=== PATIENT | female | born 1955 | race Hispanic/Latino ===

== ENCOUNTER 2019-11-20 09:22 | Emergency (ER) | payer MEDICARE ==
[~2019-11-20 09:22] MED LIST: ACET160E68 PEG; ACET160E68 PO; CALC-1034 PO; CHOL50004 PEG; FURO20TA4 PO; LEVO500T2 PO; MOM30 PO; PROT1PAC2 PO; [UNRECOGNIZED DRUG - CODE] IV
[2019-11-20] MEDS ORDERED: DIATR MEGLU/DIATRIZOATE SODIUM 30 ML BOTTLE ONE (12:46)
== END 2019-11-20 14:01 | disposition home or self-care (01) ==
LOC: EDH 09:22
DX: K94.23 Gastrostomy malfunction (principal); Z88.3 Allergy status to other anti-infective agents; Z88.0 Allergy status to penicillin
CPT/HCPCS: 43762; 74018; 99284; Q9963

== ENCOUNTER 2019-12-09 22:59 | Emergency (ER) | payer MEDICARE ==
[2019-12-10] MEDS ORDERED: DIATR MEGLU/DIATRIZOATE SODIUM 30 ML BOTTLE ONE (00:52)
== END 2019-12-10 03:20 | disposition home or self-care (01) ==
LOC: EDH 22:59
DX: T85.528A Displacement of other gastrointestinal prosthetic devices, implants and grafts, initial encounter (principal); Z96.89 Presence of other specified functional implants; E03.9 Hypothyroidism, unspecified; Z88.0 Allergy status to penicillin; Z88.3 Allergy status to other anti-infective agents
CPT/HCPCS: 74018; 99283; Q9963

== ENCOUNTER 2020-03-22 09:05 | Emergency (ER) | payer MEDICARE ==
[~2020-03-22 09:05] MED LIST changes: +ACET160E39 PEG; +ACET160E39 PO; -ACET160E68 PEG; -ACET160E68 PO
[2020-03-22 09:57] LABS: APPEARANCE,URINE CLOUDY (CLEAR); BILIRUBIN,URINE NEGATIVE (NEGATIVE); COLOR,URINE YELLOW (YELLOW); GLUCOSE, URINE (UA) NEGATIVE (NEGATIVE); KETONES,URINE NEGATIVE (NEGATIVE); LEUKOCYTE ESTERASE ,URINE LARGE (NEGATIVE); NITRATE,URINE NEGATIVE (NEGATIVE); OCCULT BLOOD,URINE SMALL (NEGATIVE); PH,URINE 7.5 (5.0-8.0); PROTEIN,URINE NEGATIVE (NEGATIVE); UROBILINOGEN,URINE 0.2 mg/dL (0.2-1.0)
[2020-03-22 10:02] LABS: AMPHET/METH SCREEN,URINE NEGATIVE (NEGATIVE); BARBITURATE SCREEN, URINE NEGATIVE (NEGATIVE); BENZODIAZEPINES SCREEN,URINE NEGATIVE (NEGATIVE); CANNABINOID SCREEN,URINE NEGATIVE (NEGATIVE); COCAINE SCREEN,URINE NEGATIVE (NEGATIVE); OPIATE SCREEN,URINE NEGATIVE (NEGATIVE); PHENCYCLIDINE SCREEN,URINE NEGATIVE (NEGATIVE)
[2020-03-22 10:04] LABS: BACTERIA,URINE Many /HPF (None Seen); RBC,URINE 0-1 /HPF (0-1); SQUAMOUS EPITHELIAL CELL,UR Few /HPF (0-2); WBC,URINE 26-50 /HPF (0-1)
[2020-03-22 10:19] LABS: HEMATOCRIT 35.6 % (36-48); MEAN CORPUSCULAR HEMOGLOBIN 32.3 pg (27.0-33.0); MEAN CORPUSCULAR HGB CONC 33.7 g/dL (32.0-36.0); MEAN CORPUSCULAR VOLUME 95.7 fL (79-99); PLATELET COUNT (AUTO) 248 K/uL (130-400); RED BLOOD CELL COUNT(AUTO) 3.72 MIL/uL (4.00-5.50); RED CELL DISTRIBUTION WIDTH 13.1 % (11.0-15.5); WHITE BLOOD COUNT (AUTO) 7.1 K/uL (4.8-10.8)
[2020-03-22 10:23] LABS: BASOPHILS % (AUTO) 0.2 % (0.0-5.0); EOSINOPHILS % (AUTO) 3.7 % (0.0-8.0); MONOCYTES % (AUTO) 15.7 % (3.0-13.0); NEUTROPHILS % (AUTO) 52.7 % (40.0-77.0)
[2020-03-22 10:25] LABS: CARBON DIOXIDE 24 mmol/L (21-32); CHLORIDE 100 mmol/L (101-111); CREATININE 0.8 mg/dL (0.5-1.5); GLOMERULAR FILTR. RATE CALC 77 mL/min (>60); GLUCOSE,RANDOM 87 mg/dL (70-105); POTASSIUM 4.9 mmol/L (3.5-5.1); SODIUM SERUM 132 mmol/L (136-145); UREA NITROGEN, BLOOD 31 mg/dL (7-18)
[2020-03-22 10:30] LABS: ALANINE AMINOTRANSFERASE 18 U/L (12-78); ALBUMIN 2.8 g/dL (3.5-5.0); ALCOHOL, BLOOD < 3 mg/dL (0-10); ASPARTATE AMINOTRANSFERASE 24 U/L (10-37); BILIRUBIN,TOTAL 0.3 mg/dL (0.2-1.0); TOTAL PROTEIN, SERUM 6.6 g/dL (6.0-8.3)
[2020-03-22 10:31] LABS: SALICYLATE < 2.8 mg/dL (2.8-20.0)
[2020-03-22 11:25] LABS: ACETAMINOPHEN < 1 mcg/mL (10-30)
[2020-03-22] MEDS ORDERED: CEFTRIAXONE 1G VIAL ONE (11:45)
[2020-03-22] MEDS ORDERED: 0.9%NACL 50ML 50 ML IV ONE (11:46)
== END 2020-03-22 14:30 | disposition home or self-care (01) ==
LOC: EDH 09:05
DX: G80.9 Cerebral palsy, unspecified (principal); R41.82 Altered mental status, unspecified; N39.0 Urinary tract infection, site not specified; E46 Unspecified protein-calorie malnutrition; F79 Unspecified intellectual disabilities; R13.10 Dysphagia, unspecified; E78.00 Pure hypercholesterolemia, unspecified; K21.9 Gastro-esophageal reflux disease without esophagitis; E03.9 Hypothyroidism, unspecified; Z88.0 Allergy status to penicillin; Z88.1 Allergy status to other antibiotic agents
CPT/HCPCS: 36415; 70450; 80053; 80305; 81001; 85025; 87077; 87088; 87186; 99284; G0481; J0696

== ENCOUNTER 2020-12-27 05:12 | Emergency (ER) | payer MEDICARE ==
[2020-12-27 05:17] VITALS: BP 130/74
[2020-12-27] MEDS ORDERED: DIATR MEGLU/DIATRIZOATE SODIUM 30 ML BOTTLE ONE ×2 (06:34→06:52)
== END 2020-12-27 07:19 | disposition home or self-care (01) ==
LOC: EDH 05:12
DX: K94.23 Gastrostomy malfunction (principal); E03.9 Hypothyroidism, unspecified; I10 Essential (primary) hypertension; Z79.899 Other long term (current) drug therapy; Z88.0 Allergy status to penicillin; Z88.1 Allergy status to other antibiotic agents
CPT/HCPCS: 43762; 74018; 99284; Q9963 ×2

== ENCOUNTER 2023-11-23 18:43 | Inpatient (IN) | payer MEDICARE ==
[~2023-11-23] VITALS: Ht 147.3 cm; Wt 40.8 kg
[~2023-11-23 18:43] MED LIST changes: -ACET160E39 PEG; -ACET160E39 PO; +ACET160S PEG; +AMLO-257 PEG; +ATRO2DRO7 SL; +BISA10SU11 RC; -CALC-1034 PO; +CALC-1255 PEG; +CARB-283 OP; -CHOL50004 PEG; +CYAN100099 PEG; +EMOL45EM TP; +FENO48TA10 PO; +FENO54TA6 PEG; -FURO20TA4 PO; +LACT-461 PEG; +LEVO25CA4 PEG; +LEVO25CA4 PO; -LEVO500T2 PO; +LORA10TA7 PO; +LORA5SOL30 PEG; +MAGN400O17 PEG; +MENT113P8 TP; +METO5SOL26 PEG; +METO5TAB2 PO; +MIDA5SPR NS; -MOM30 PO; +MULT9LIQ6 PEG; +ONDA4SOL PO; +PROT1PAC2 PEG; -PROT1PAC2 PO; -[UNRECOGNIZED DRUG - CODE] IV; +[UNRECOGNIZED DRUG - CODE] OP; +[UNRECOGNIZED DRUG - CODE] PEG; +[UNRECOGNIZED DRUG - CODE] PO
[2023-11-23 20:09] LABS: BASOPHILS # (AUTO) 0.02 K/uL (0.00-0.20); BASOPHILS % (AUTO) 0.1 % (0.0-5.0); IMMATURE GRANULOCYTE ABSOLUTE 0.08 K/uL (0-1); LYMPHOCYTES # (AUTO) 0.8 K/uL (1.0-4.8); LYMPHOCYTES % (AUTO) 5.2 % (21.0-51.0); MEAN CORPUSCULAR HEMOGLOBIN 30.9 pg (27.0-33.0); MEAN CORPUSCULAR HGB CONC 34.6 g/dL (32.0-36.0); MEAN CORPUSCULAR VOLUME 89.2 fL (79-99); MONOCYTES # (AUTO) 0.8 K/uL (0.1-1.0); MONOCYTES % (AUTO) 5.2 % (3.0-13.0); NEUTROPHILS # (AUTO) 12.7 K/uL (1.8-7.7); NEUTROPHILS % (AUTO) 88.9 % (40.0-77.0); PLATELET COUNT (AUTO) 304 K/uL (130-400); RED BLOOD CELL COUNT(AUTO) 4.37 MIL/uL (4.00-5.50); RED CELL DISTRIBUTION WIDTH 14.4 % (11.0-15.5); WHITE BLOOD COUNT (AUTO) 14.3 K/uL (4.8-10.8)
[2023-11-23] MEDS: PANTOPrazole 40 MG/VIAL IVP ONE (20:15)
[2023-11-23] MEDS: ondanSETRON 4MG INJ IVP ONE (20:15)
[2023-11-23] MEDS: 0.9%NACL 1000ML 1,000 ML IV ONE (20:15)
[2023-11-23 20:17] LABS: CREATININE 0.6 mg/dL (0.5-1.0)
[2023-11-23 20:22] LABS: ALBUMIN 3.7 g/dL (3.5-5.0); BILIRUBIN,DIRECT 0.1 mg/dL (0.0-0.3); BILIRUBIN,TOTAL 0.5 mg/dL (0.2-1.0); TOTAL PROTEIN, SERUM 7.3 g/dL (6.0-8.3)
[2023-11-23 20:33] LABS: INR 1.02 (0.85-1.15)
[2023-11-23 20:35] LABS: PARTIAL THROMBOPLASTIN TIME 28.8 SEC (26.3-35.5)
[2023-11-23 21:12] LABS: COVID19 (SARS ANTIGEN RAPID) PRESUMPTIVE NEGATIVE (NEGATIVE); INFLUENZA TYPE A Negative For Type A (NEGATIVE); INFLUENZA TYPE B Negative For Type B (NEGATIVE)
[2023-11-23] MEDS: levoFLOXacin 750 MG/D5W 150 ML 150 ML IV ONE (21:16)
[2023-11-23 21:37] LABS: APPEARANCE,URINE CLEAR (CLEAR); BILIRUBIN,URINE NEGATIVE (NEGATIVE); COLOR,URINE YELLOW (YELLOW); GLUCOSE, URINE (UA) NEGATIVE (NEGATIVE); KETONES,URINE NEGATIVE (NEGATIVE); LEUKOCYTE ESTERASE ,URINE NEGATIVE Leu/uL (NEGATIVE); NITRATE,URINE NEGATIVE (NEGATIVE); OCCULT BLOOD,URINE NEGATIVE (NEGATIVE); PH,URINE 6.5 (5.0-8.0); PROTEIN,URINE NEGATIVE (NEGATIVE); UROBILINOGEN,URINE 0.2 mg/dL (0.2-1.0)
[2023-11-23 21:39] LABS: ADD UA MICROSCOPIC NO
[2023-11-23] MEDS ORDERED: ondanSETRON 4MG INJ IVP PRN (23:00)
[2023-11-23] MEDS ORDERED: acetaMINOPHEN 650 MG SUPPOSITORY RC PRN (23:00)
[2023-11-23] MEDS ORDERED: ALBUTEROL 0.083% 2.5 MG/3 ML INH IH PRN (23:00)
[2023-11-23] MEDS ORDERED: hydrALAZine 20MG/ML VIAL IV PRN (23:00)
[2023-11-23] MEDS ORDERED: acetaMINOPHEN 325 MG TAB PEG PRN (23:00)
[2023-11-23] MEDS ORDERED: LACTULOSE 20 GM/30 ML UDCUP PO PRN (23:00)
[2023-11-23] MEDS ORDERED: doCUSate SODIUM 100 MG CAP PO PRN (23:00)
[2023-11-23 23:45] VITALS: BP 106/58; PULSE 76; RESP 20; TEMP 98.1; O2SAT 93
[2023-11-24] VITALS (13 sets, daily range): BP systolic 100–127; BP diastolic 43–63; PULSE 68–89; RESP 18–22; TEMP 97.4–98.2; O2SAT 93–96
[2023-11-24] MEDS: LACTATED RINGERS 1000ML 1,000 ML IV SCH (00:05)
[2023-11-24] MEDS: IpraTROPium 0.5 MG/2.5 ML INH IH SCH (00:15)
[2023-11-24] MEDS ORDERED: PROP10DR15 OP (00:35)
[2023-11-24] MEDS ORDERED: GLUCAGON 1MG KIT 1 MG ML IM PRN (02:30)
[2023-11-24] MEDS: INSULIN humuLIN R 100 UNIT/ML 3ML SQ SCH (05:29)
[2023-11-24 05:45] LABS: BASOPHILS # (AUTO) 0.02 K/uL (0.00-0.20); BASOPHILS % (AUTO) 0.3 % (0.0-5.0); EOSINOPHILS # (AUTO) 0.01 K/uL (0.00-0.70); EOSINOPHILS % (AUTO) 0.1 % (0.0-8.0); HEMATOCRIT 35.6 % (36-48); IMMATURE GRANULOCYTE ABSOLUTE 0.03 K/uL (0-1); LYMPHOCYTES % (AUTO) 12.6 % (21.0-51.0); MEAN CORPUSCULAR HEMOGLOBIN 30.2 pg (27.0-33.0); MEAN CORPUSCULAR HGB CONC 33.1 g/dL (32.0-36.0); MONOCYTES # (AUTO) 0.6 K/uL (0.1-1.0); MONOCYTES % (AUTO) 7.6 % (3.0-13.0); NEUTROPHILS # (AUTO) 6.2 K/uL (1.8-7.7); PLATELET COUNT (AUTO) 241 K/uL (130-400); RED BLOOD CELL COUNT(AUTO) 3.91 MIL/uL (4.00-5.50); RED CELL DISTRIBUTION WIDTH 14.5 % (11.0-15.5); WHITE BLOOD COUNT (AUTO) 7.8 K/uL (4.8-10.8)
[2023-11-24 06:29] LABS: CREATININE 0.5 mg/dL (0.5-1.0); MAGNESIUM 1.7 mg/dL (1.80-2.40); PHOSPHORUS 2.8 mg/dL (2.5-4.9); POTASSIUM 3.9 mmol/L (3.5-5.1); THYROID STIMULATING HORMONE 2.12 uIU/mL (0.36-3.74)
[2023-11-24] MEDS: BUDESONIDE 0.5 MG/2 ML INH IH SCH (06:50)
[2023-11-24] MEDS: ALBUTEROL 0.083% 2.5 MG/3 ML INH IH SCH (06:50)
[2023-11-24] MEDS: PANTOPrazole 40 MG/VIAL IVP SCH (08:23)
[2023-11-24] MEDS: ENOXAPARIN SODIUM 30 MG/0.3 ML SQ SCH (08:23)
[2023-11-24] MEDS: levoFLOXacin 750 MG/D5W 150 ML 150 ML IV SCH (08:23)
[2023-11-24] MEDS: MAGNESIUM 2GM PREMIX 50ML 50 ML IV PRN (11:41)
[2023-11-24] MEDS ORDERED: BisaCODYL 10 MG SUPP.RECT RC PRN (12:30)
[2023-11-24] MEDS ORDERED: ACETAMINOPHEN 160 MG PEG PRN (12:30)
[2023-11-24] MEDS: PROPYLENE GLYCOL OP SCH (13:00)
[2023-11-24] MEDS: CARBOXYMETHYLCELLULOSE SODIUM OP SCH (14:00)
[2023-11-24] MEDS ORDERED: LACE ASSESSMENT (SCORE > 11) MISC SCH (18:00)
[2023-11-24] MEDS: MINERAL OIL OP SCH (20:32)
[2023-11-24] MEDS: PETROLATUM WHITE OP SCH (20:32)
[2023-11-24] MEDS: metoCLOPRAmide 5 MG TABLET PO SCH (20:33)
[2023-11-24] MEDS: CHOLECALCIFEROL PEG SCH (20:33)
[2023-11-24] MEDS: WHEY PROTEIN ISOLATE PO SCH (20:33)
[2023-11-24] MEDS: [UNRECOGNIZED DRUG - OTHER] TP SCH (20:33)
[2023-11-24] MEDS: FENOFIBRATE 54 MG PEG SCH (20:33)
[2023-11-24] MEDS: MENTHOL TP SCH (20:33)
[2023-11-24] MEDS: CALCIUM CARBONATE 1250 MG PEG SCH (20:33)
[2023-11-25] VITALS (12 sets, daily range): BP systolic 101–182; BP diastolic 39–96; PULSE 64–88; RESP 18–22; TEMP 97.4–98.3; O2SAT 93–96
[2023-11-25 04:54] LABS: CREATININE 0.6 mg/dL (0.5-1.0); POTASSIUM 3.5 mmol/L (3.5-5.1)
[2023-11-25] MEDS: levoTHYROxine 25 MCG TABLET PO SCH (05:38)
[2023-11-25] MEDS: FERROUS FUM PEG SCH (09:00)
[2023-11-25] MEDS: MULTIVIT PEG SCH (09:00)
[2023-11-25] MEDS: MINERALS PEG SCH (09:00)
[2023-11-25] MEDS: LORATAdine 10 mg 10 MG TABLET PO SCH (09:00)
[2023-11-25] MEDS: LACTOBACILLUS ACIDOPHILUS PEG SCH (09:00)
[2023-11-25] MEDS: amLODIPine 5 MG TAB PEG SCH (09:03)
[2023-11-25] MEDS: PoTASSium chloRIDE 20MEQ/100ML 100 ML IV PRN (09:11)
[2023-11-26] VITALS (32 sets, daily range): BP systolic 59–129; BP diastolic 22–80; PULSE 52–91; RESP 10–22; TEMP 97–98.9; O2SAT 93–96
[2023-11-26 05:33] LABS: BASOPHILS # (AUTO) 0.04 K/uL (0.00-0.20); BASOPHILS % (AUTO) 0.6 % (0.0-5.0); EOSINOPHILS # (AUTO) 0.07 K/uL (0.00-0.70); EOSINOPHILS % (AUTO) 1.1 % (0.0-8.0); HEMATOCRIT 36.1 % (36-48); IMMATURE GRANULOCYTE ABSOLUTE 0.03 K/uL (0-1); LYMPHOCYTES # (AUTO) 0.9 K/uL (1.0-4.8); LYMPHOCYTES % (AUTO) 12.9 % (21.0-51.0); MEAN CORPUSCULAR HEMOGLOBIN 30.4 pg (27.0-33.0); MEAN CORPUSCULAR VOLUME 92.1 fL (79-99); MONOCYTES # (AUTO) 0.5 K/uL (0.1-1.0); MONOCYTES % (AUTO) 7.8 % (3.0-13.0); NEUTROPHILS # (AUTO) 5.1 K/uL (1.8-7.7); NEUTROPHILS % (AUTO) 77.1 % (40.0-77.0); PLATELET COUNT (AUTO) 233 K/uL (130-400); RED BLOOD CELL COUNT(AUTO) 3.92 MIL/uL (4.00-5.50); RED CELL DISTRIBUTION WIDTH 14.3 % (11.0-15.5); WHITE BLOOD COUNT (AUTO) 6.6 K/uL (4.8-10.8)
[2023-11-26 05:45] LABS: CREATININE 0.6 mg/dL (0.5-1.0)
[2023-11-26] MEDS: DEXTROSE 50%-WATER 50 ML DISP.SYRIN IV PRN (05:58)
[2023-11-26] MEDS ORDERED: proPOFol 10 MG/ML 20ML VIAL IV ONE (11:01)
[2023-11-26] MEDS: DEXTROSE 5 %-0.45 % NACL 1,000 ML IV SCH (18:17)
[2023-11-27] VITALS (10 sets, daily range): BP systolic 112–135; BP diastolic 49–69; PULSE 61–82; RESP 18–20; TEMP 97.8–99; O2SAT 96–97
[2023-11-27 04:27] LABS: BASOPHILS # (AUTO) 0.02 K/uL (0.00-0.20); BASOPHILS % (AUTO) 0.4 % (0.0-5.0); EOSINOPHILS # (AUTO) 0.22 K/uL (0.00-0.70); EOSINOPHILS % (AUTO) 3.9 % (0.0-8.0); HEMATOCRIT 32.5 % (36-48); IMMATURE GRANULOCYTE ABSOLUTE 0.03 K/uL (0-1); LYMPHOCYTES # (AUTO) 0.6 K/uL (1.0-4.8); LYMPHOCYTES % (AUTO) 10.9 % (21.0-51.0); MEAN CORPUSCULAR HGB CONC 33.5 g/dL (32.0-36.0); MEAN CORPUSCULAR VOLUME 89.5 fL (79-99); MONOCYTES # (AUTO) 0.5 K/uL (0.1-1.0); MONOCYTES % (AUTO) 9.5 % (3.0-13.0); NEUTROPHILS # (AUTO) 4.3 K/uL (1.8-7.7); NEUTROPHILS % (AUTO) 74.8 % (40.0-77.0); PLATELET COUNT (AUTO) 198 K/uL (130-400); RED BLOOD CELL COUNT(AUTO) 3.63 MIL/uL (4.00-5.50); RED CELL DISTRIBUTION WIDTH 14.3 % (11.0-15.5); WHITE BLOOD COUNT (AUTO) 5.7 K/uL (4.8-10.8)
[2023-11-27 04:54] LABS: CREATININE 0.6 mg/dL (0.5-1.0); MAGNESIUM 1.5 mg/dL (1.80-2.40); PHOSPHORUS 2.9 mg/dL (2.5-4.9); POTASSIUM 3.2 mmol/L (3.5-5.1)
[2023-12-01] MEDS ORDERED: CYANOCOBALAMIN (VITAMIN B-12) 1,000 MCG TABLET PEG SCH (09:00)
== END 2023-11-27 16:00 | DRG 368 ==
LOC: EDH 18:43 → EDHIP 22:17 → 4CH 23:44
PROVIDERS: ADMIT Internal Medicine; ATTEND Internal Medicine
PROC: 0DJ08ZZ Inspection of Upper Intestinal Tract, Via Natural or Artificial Opening Endoscopic (ICD-10-PCS; principal; 2023-11-26)
DX: K21.01 Gastro-esophageal reflux disease with esophagitis, with bleeding (principal); J18.9 Pneumonia, unspecified organism; K29.51 Unspecified chronic gastritis with bleeding; D62 Acute posthemorrhagic anemia; Z20.822 Contact with and (suspected) exposure to COVID-19; E87.8 Other disorders of electrolyte and fluid balance, not elsewhere classified; R73.9 Hyperglycemia, unspecified; I10 Essential (primary) hypertension; E03.9 Hypothyroidism, unspecified; K44.9 Diaphragmatic hernia without obstruction or gangrene; E55.9 Vitamin D deficiency, unspecified; G80.9 Cerebral palsy, unspecified; R13.10 Dysphagia, unspecified; E53.8 Deficiency of other specified B group vitamins; E87.6 Hypokalemia; K59.00 Constipation, unspecified; Q02 Microcephaly; Z93.1 Gastrostomy status; Z87.440 Personal history of urinary (tract) infections
CPT/HCPCS: 31720; 36415; 43235; 71045; 80048; 80076; 81003; 82270; 82550; 82948; 83605; 83735; 84100; 84145; 84443; 84484; 85018; 85025; 85610; 85730; 86850; 86900; 86901; 87040; 87071; 87086; 87186; 87205; 87426; 87804; 93005; 94640; 94664; G0378; J1650; J1956; J2405; J2470; J2704; J3475; J3480; J7030; J7070; A4620; A7002; J3490

== ENCOUNTER 2024-07-14 12:55 | Emergency (ER) | payer MEDICARE ==
[~2024-07-14] VITALS: Ht 154.9 cm; Wt 49.9 kg
[~2024-07-14 12:55] MED LIST changes: +ACET160L45 PO; -ACET160S PEG; -ATRO2DRO7 SL; +DSSL PEG; +EMOL454C7 TP; -EMOL45EM TP; -FENO48TA10 PO; +LACT-441 PO; -LEVO25CA4 PEG; -LEVO25CA4 PO; +LEVO25CA5 PO; -LORA10TA7 PO; -MAGN400O17 PEG; -MENT113P8 TP; -METO5SOL26 PEG; +METO5SOL26 PO; +METO5TAB2 PEG; -METO5TAB2 PO; +OLOP2.5D16 OP; -ONDA4SOL PO; +PROP1DRO4 OP; -PROT1PAC2 PEG; +SENN8.8S18 PEG; -[UNRECOGNIZED DRUG - CODE] OP; -[UNRECOGNIZED DRUG - CODE] PO
[2024-07-14 13:55] LABS: BASOPHILS # (AUTO) 0.05 K/uL (0.00-0.20); BASOPHILS % (AUTO) 0.3 % (0.0-5.0); HEMATOCRIT 39.2 % (36-48); IMMATURE GRANULOCYTE ABSOLUTE 0.08 K/uL (0-1); LYMPHOCYTES # (AUTO) 0.7 K/uL (1.0-4.8); LYMPHOCYTES % (AUTO) 4.9 % (21.0-51.0); MEAN CORPUSCULAR HEMOGLOBIN 29.3 pg (27.0-33.0); MEAN CORPUSCULAR HGB CONC 32.9 g/dL (32.0-36.0); MEAN CORPUSCULAR VOLUME 88.9 fL (79-99); MONOCYTES # (AUTO) 1.2 K/uL (0.1-1.0); MONOCYTES % (AUTO) 7.8 % (3.0-13.0); NEUTROPHILS # (AUTO) 12.8 K/uL (1.8-7.7); NEUTROPHILS % (AUTO) 86.5 % (40.0-77.0); PLATELET COUNT (AUTO) 441 K/uL (130-400); RED BLOOD CELL COUNT(AUTO) 4.41 MIL/uL (4.00-5.50); RED CELL DISTRIBUTION WIDTH 14.6 % (11.0-15.5); WHITE BLOOD COUNT (AUTO) 14.8 K/uL (4.8-10.8)
--- NOTE | 2024-07-14 13:57 | EKG ---
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
[2024-07-14 14:23] LABS: B-TYPE NATRIURETIC PEPTIDE 42 pg/mL (0-100)
--- NOTE | 2024-07-14 14:23 | ERN ---
General Chief Complaint: Coffee Ground Emesis Stated Complaint: COFFEE GROUND EMESIS Time Seen by MD: 12:56 Source: patient History of Present Illness Initial Comments This is a 69-year-old female coming in to be evaluated for PEG tube bleeding and cough as well as shortness of breath. 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 Patient was had a PEG tube in place for some time. Allergies: Coded Allergies: Penicillins (Unverified Allergy, Unknown, 05/04/18) nystatin (Unverified Allergy, Unknown, 05/04/18) Home Meds Reported Medications Acetaminophen (Acetaminophen) 160 Mg/5 Ml Liquid, 20 ML PO TIDP PRN for pain or fever for 8 Days, #120 ML 0 Refills 06/30/24 Lactulose (Lactulose) 10 Gram/15 Ml Solution, 30 ML PO QWESA PRN for CONSTIPATION, #500 ML 0 Refills 06/30/24 Metoclopramide HCl (Metoclopramide HCl) 5 Mg Tablet, 1 TAB PEG BID for 30 Days, #60 TAB 0 Refills 06/30/24 Sennosides (Senna) 8.8 Mg/5 Ml Syrup, 15 ML PEG HS for 30 Days, #300 ML 0 Refills 06/30/24 Loratadine (Loratadine) 5 Mg/5 Ml Solution, 10 ML PEG DAILY for allergy symptoms for 30 Days, #150 ML 0 Refills 06/30/24 Docusate Sodium (Colace Liquid 100Mg/10Ml) 50 Mg/5 Ml Liq, 10 ML PEG BID for 30 Days, #150 ML 0 Refills 06/30/24 Emollient Base (Emollient) 500 Gm Cream..g., 500 GM TP BID for CALLUSES AND DRY SKIN 06/30/24 Olopatadine HCl (Olopatadine HCl) 0.2 % Drops, 1 DROP OP DAILY for 30 Days, ML 0 Refills 05/09/24 Propylene Glycol/Peg 400/Pf (Systane 0.3-0.4% Eye Drops) 0.3 %-0.4 % Droperette, 1 EACH OP QID, DROP 05/09/24 Metoclopramide HCl (Metoclopramide HCl) 5 Mg/5 Ml Solution, 5 MG PO BID, ML 05/09/24 Lactobacillus Acidophilus (Lactobacillus Acidophilus) 25 Million Cell Capsule, 1 EACH PEG DAILY, CAP 10/25/23 Fenofibrate (Fenofibrate) 54 Mg Tablet, 54 MG PEG HS, TAB 10/25/23 Calcium Carbonate (Calcium Carbonate) 600 Mg Calcium (1500 Mg) Tablet, 1250 MG PEG HS, TAB 10/25/23 Amlodipine Besylate (Amlodipine Besylate) 5 Mg Tablet, 5 MG PEG DAILY, TAB 10/25/23 Carboxymethylcellulose Sodium (Artificial Tears) 15 Ml Drops, 2 DROP OP TID, DROP 11/25/22 Cholecalciferol (Vitamin D3) (Ddrops) 5 Ml Drops, 0.4 ML PEG HS, DROP 11/25/22 Multivit &Minerals/Ferrous Fum (Multivitamin Liquid) 9 Mg/15 Ml Liquid, 15 ML PEG DAILY 11/25/22 Levothyroxine Sodium (Levothyroxine) 25 Mcg Capsule, 25 MCG PO DAILY, CAP 11/25/22 Cyanocobalamin (Vitamin B-12) (B-12) 1,000 Mcg Tablet, 1000 MCG PEG QWEEK, TAB Mondays11/25/22 Bisacodyl (Bisacodyl) 10 Mg Supp.rect, 10 MG RC QWESA PRN for CONSTIPATION, EA 11/25/22 Midazolam (Nayzilam) 5 Mg/0.1 Ml [place], 1 SPRAY NS DAILY PRN for FOR REPETATIVE CLUSTER SEIZURE, SPRAY 11/25/22 Past Medical History Past Medical History: Constipation, GERD, High Cholesterol, Hypertension, Hypothyroid, UTI Medical History Other: CP,BILAT CATARACT,MICROCEPHALY,IDD,KYPHOSCOLIOSIS Past Surgical History: None, Unknown Surgical History Other: WEDGE COMPRESSION FX LUMBAR, PEG TUBE Family History Family History: Negative Social History Social History: Negative Female( History) History: Not Applicable ROS Dictation Limited due to poor mentation Results Laboratory and Microbiology Lab and Micro Result Laboratory Tests Test 07/14/24 13:46 07/14/24 16:26 White Blood Count 14.8 K/uL (4.8-10.8) H Red Blood Count 4.41 MIL/uL (4.00-5.50) Hemoglobin 12.9 g/dL (12.0-16.0) Hematocrit 39.2 % (36-48) Mean Corpuscular Volume 88.9 fL (79-99) Mean Corpuscular Hemoglobin 29.3 pg (27.0-33.0) Mean Corpuscular Hemoglobin Concent 32.9 g/dL (32.0-36.0) Red Cell Distribution Width 14.6 % (11.0-15.5) Platelet Count 441 K/uL (130-400) H Mean Platelet Volume 9.1 fL (7.5-10.5) Immature Granulocyte % (Auto) 0.5 % (0-1) Neutrophils (%) (Auto) 86.5 % (40.0-77.0) H Lymphocytes (%) (Auto) 4.9 % (21.0-51.0) L Monocytes (%) (Auto) 7.8 % (3.0-13.0) Eosinophils (%) (Auto) 0.0 % (0.0-8.0) Basophils (%) (Auto) 0.3 % (0.0-5.0) Neutrophils # (Auto) 12.8 K/uL (1.8-7.7) H Lymphocytes # (Auto) 0.7 K/uL (1.0-4.8) L Monocytes # (Auto) 1.2 K/uL (0.1-1.0) H Eosinophils # (Auto) 0.00 K/uL (0.00-0.70) Basophils # (Auto) 0.05 K/uL (0.00-0.20) Absolute Immature Granulocyte (auto 0.08 K/uL (0-1) Nucleated Red Blood Cells 0.0 % (0.0-0.19) White Cell Morphology Comment See comments Prothrombin Time 11.1 SEC (9.6-11.6) Prothromb Time International Ratio 1.05 (0.85-1.15) Activated Partial Thromboplast Time 32.8 SEC (26.3-35.5) Sodium Level 137 mmol/L (136-145) Potassium Level 3.9 mmol/L (3.5-5.1) Chloride Level 99 mmol/L (101-111) L Carbon Dioxide Level 29 mmol/L (21-32) Blood Urea Nitrogen 28 mg/dL (7-18) H Creatinine 0.9 mg/dL (0.5-1.0) Glomerular Filtration Rate Calc 70 mL/min (>90) Random Glucose 183 mg/dL (70-105) H Total Calcium 9.4 mg/dL (8.5-10.1) Magnesium Level 2.40 mg/dL (1.80-2.40) Total Creatine Kinase 36 U/L (21-232) # Troponin I High Sensitivity 10.4 ng/L (4-50) B-Type Natriuretic Peptide 42 pg/mL (0-100) Urine Color LIGHT-YELLOW (YELLOW) Urine Appearance CLEAR (CLEAR) Urine pH 7.0 (5.0-8.0) Urine Specific [place] 1.009 (1.001-1.031) Urine Protein NEGATIVE mg/dL (NEGATIVE) Urine Glucose (UA) NEGATIVE mg/dL (NEGATIVE) Urine Ketones NEGATIVE mg/dL (NEGATIVE) Urine Occult Blood NEGATIVE (NEGATIVE) Urine Nitrate NEGATIVE (NEGATIVE) Urine Bilirubin NEGATIVE mg/dL (NEGATIVE) Urine Urobilinogen 0.2 mg/dL (0.2-1.0) Urine Leukocyte Esterase 75 Eugen[place]/uL (NEGATIVE) H Urine RBC 0-1 /HPF (0-1) Urine WBC 11-25 /HPF (0-1) H Urine Squamous Epithelial Cells FEW /HPF (0-2) Urine Bacteria None /HPF (None Seen) Labs Reviewed?: Yes EKG/XRAY/US/CT/MRI X-RAY Comment [place] [id number] [id number] IMAGING REPORT Signed PATIENT: NYLA BRAGA MR#: [id number] : 1955 SEX: F AGE: 69 LOCATION: ED ORDER [id number] STATUS: REG ER REPORT#: [id number] SERVICE 1311 REASON: cp ORDERING PHYSICIAN: ONOFRE HYLTON MD PROCEDURE: CXR1VW - CHEST 1VW Exam Type: CHEST 1VW Clinical Information: cp Comparison: None Findings: There is cardiomegaly. There is prominence of the vascular markings consistent with pulmonary venous congestion. IMPRESSION: Findings consistent with pulmonary venous congestion. DICTATED BY: RENE HERZOG MD DATE: 07/14/24 5295 ELECTRONICALLY SIGNED BY: RENE HERZOG MD DATE: 07/14/[address] Scan Comment [place] [id number] [address] [place] [id number] IMAGING REPORT Signed PATIENT: NYLA BRAGA MR#: [id number] : 1955 SEX: F AGE: 69 LOCATION: EDH ORDER 33 STATUS: [facility] REPORT#: [id number] SERVICE 33 REASON: abd pain ORDERING PHYSICIAN: ONOFRE HYLTON MD PROCEDURE: ABD PEL WO - CT ABDOMEN/PELVIS W/O CONTRAST Exam Type: CT ABDOMEN/PELVIS W/O CONTRAST Clinical Information: abd pain Comparison: None CT Dose Index (CTDI): 10.20 mGy Dose Length Product (DLP): 530.00 total mGy-cm PROTOCOL: Routine noncontrast helical scanning of the abdomen and pelvis was performed at 5mm collimation. Findings: No evidence of nephro or ureterolithiasis is found. No hydronephrosis or ureteral dilatation is seen. The lung bases are clear. Chronic deformity of the rib cage. Small left pleural effusion. The stomach is unremarkable. It shows no wall thickening. No gross ulceration is seen. It is not overly distended. There are no surrounding inflammatory changes. No wall lesions are identified to suggest cancer. The spleen is unremarkable. It is not enlarged. The pancreas shows normal anatomy. It is not fatty replaced. It shows no lesions. The pancreatic duct is not dilated. The gallbladder is unremarkable. It shows no cholelithiasis. The gallbladder wall is normal in thickness. There is no pericholecystic fluid. The is no acute or chronic inflammation noted. The adrenal glands are unremarkable. There is no enlargement. No lesions are noted. The liver is unremarkable. It shows no focal masses. The appendix is unremarkable. It shows no evidence of inflammation. No appendicolith is seen. The small bowel is unremarkable. There is no evidence of dilatation to suggest obstruction. No evidence of adynamic ileus is seen. There is no small bowel wall thickening to suggest enteritis. Abundant fecal matter is noted throughout the colon consistent with constipation. The urinary bladder is unremarkable. There is no wall thickening to suggest tumor or inflammation. There are no intraluminal calculi. There are no diverticula. There is no evidence of chronic bladder outlet obstruction. There is no evidence of urinary bladder distention to suggest urinary retention. The other pelvic structures are unremarkable. The bony and vascular structures are unremarkable for the patient's age. IMPRESSION: Constipation. Chronic changes as noted above. This study was performed using dose reduction techniques to include automated exposure control and/or adjustment of the mA and/or kV according to patient size. DICTATED BY: RENE HERZOG MD DATE: 07/14/24 160 ELECTRONICALLY SIGNED BY: RENE HERZOG MD DATE: 07/14/24 1611 MDM MDM: Differential diagnosis: Poor mentation, peg tube in place, constipation, UTI Rationale: Tests considered and ordered secondary to shared decision making include: Previous outside records reviewed: Old ER visits. Risk of complication and/or morbidity or mortality of patient management: None Medications-Per medication reconciliation Patient is a 69-year-old gentleman coming in to be evaluated for multiple complaints. CT disclose constipation peg tube is in place. Long with this patient was positive for urinary tract infection. Patient will be discharged in stable condition with a diagnosis of constipation UTI medication will be provided for symptomatic relief has a history of treatment of UTI. ED Course Orders Procedure Category Date Status Time Cbc With Differential LAB 07/14/24 Complete 13:11 Prothrombin Time With LAB 07/14/24 Complete INR 13:11 B-Type Natriuretic LAB 07/14/24 Complete Peptide 13:11 Chest 1vw RAD 07/14/24 Resulted 13:11 12 Lead Ekg Tracing- EKG 07/14/24 Complete Technical 13:11 Magnesium LAB 07/14/24 Complete 13:11 Urinalysis Profile LAB 07/14/24 Complete 13:11 Partial LAB 07/14/24 Complete Thromboplastin Time 13:11 Basic Metabolic Panel LAB 07/14/24 Complete 13:11 Cardiac Panel LAB 07/14/24 Complete 13:46 Ct Abdomen/Pelvis W/O CT 07/14/24 Resulted Contrast 15:34 Culture Urine DEBRA 07/14/24 Logged 16:45 Sulfamethox-Tmp Ds PHA 07/14/24 Verified 800/160 Tab (Bactrim 16:52 Vital Signs Date Time Temp Pulse Resp B/P (MAP) Pulse Ox O2 Delivery O2 Flow Rate FiO2 07/14/24 16:49 98.1 80 14 121/56 97 Room Air* 0 21 07/14/24 15:17 98.1 97 14 111/75 97 Room Air* 0 21 07/14/24 12:56 101 20 99 Room Air 0 DX & DISP Disposition: Discharge Departure Impression: Primary Impression: Constipation Additional Impressions: UTI (urinary tract infection), Developmental delay Condition: Stable Scripts Lactulose (Lactulose) 10 Gram/15 Ml Solution 30 ML PO BID for constipation, #500 ML 0 Refills Prov: ONOFRE HYLTON MD 07/14/24 Sulfamethoxazole/Trimethoprim (Bactrim Ds Tablet) 800 Mg-160 Mg Tablet 1 TAB PO BID for 10 Days, #20 TAB 0 Refills Prov: ONOFRE HYLTON MD 07/14/24 Additional Instructions: FOLLOW-UP WITH PRIMARY CARE PROVIDER IN 1 TO 2 DAYS. TAKE MEDICATIONS DIRECTED HERE IN THE EMERGENCY ROOM. OKAY TO CONTINUE HOME MEDICATIONS UNLESS OTHERWISE DISCUSSED DURING YOUR VISIT IN THE EMERGENCY ROOM TODAY. RETURN TO YOUR NEAREST EMERGENCY ROOM IF SYMPTOMS WORSEN OR IF THERE IS NO IMPROVEMENT. CALL 911 IF YOU NEED IMMEDIATE ASSISTANCE. TAKE TYLENOL [id number] NEEDED AND IF NO CONTRAINDICATIONS ARE PRESENT. INCREASE ORAL HYDRATION. A WOUND CULTURE OR URINE CULTURE WAS ORDERED HERE IN THE EMERGENCY ROOM DEPARTMENT PLEASE FOLLOW-UP WITH PRIMARY CARE PROVIDER AND ADVISE THEM TO GET REPEAT PORTS FROM OUR FACILITY. IF YOU HAD ANY PO WRAP/SPLINTS THAT WERE APPLIED HERE, PLEASE DO NOT REMOVE THEM UNTIL YOU SEE YOUR PRIMARY CARE OR SPECIALTY. Referrals: Referrals: SELF,REFERRAL (PCP) TERRIE ZHENG MD Time of Disposition: 16:54 ONOFRE HYLTON MD Jul 14, 2024 14:23
[2024-07-14 14:27] LABS: CREATININE 0.9 mg/dL (0.5-1.0); POTASSIUM 3.9 mmol/L (3.5-5.1)
[2024-07-14 14:29] LABS: INR 1.05 (0.85-1.15); PROTHROMBIN TIME 11.1 SEC (9.6-11.6)
[2024-07-14 14:31] LABS: PARTIAL THROMBOPLASTIN TIME 32.8 SEC (26.3-35.5)
[2024-07-14 14:34] LABS: MAGNESIUM 2.4 mg/dL (1.80-2.40)
--- NOTE | 2024-07-14 15:01 | HMCIMG ---
Exam Type: CHEST 1VW Clinical Information: cp Comparison: None Findings: There is cardiomegaly. There is prominence of the vascular markings consistent with pulmonary venous congestion. IMPRESSION: Findings consistent with pulmonary venous congestion.
--- NOTE | 2024-07-14 16:11 | HMCIMG ---
Exam Type: CT ABDOMEN/PELVIS W/O CONTRAST Clinical Information: abd pain Comparison: None CT Dose Index (CTDI): 10.20 mGy Dose Length Product (DLP): 530.00 total mGy-cm PROTOCOL: Routine noncontrast helical scanning of the abdomen and pelvis was performed at 5mm collimation. Findings: No evidence of nephro or ureterolithiasis is found. No hydronephrosis or ureteral dilatation is seen. The lung bases are clear. Chronic deformity of the rib cage. Small left pleural effusion. The stomach is unremarkable. It shows no wall thickening. No gross ulceration is seen. It is not overly distended. There are no surrounding inflammatory changes. No wall lesions are identified to suggest cancer. The spleen is unremarkable. It is not enlarged. The pancreas shows normal anatomy. It is not fatty replaced. It shows no lesions. The pancreatic duct is not dilated. The gallbladder is unremarkable. It shows no cholelithiasis. The gallbladder wall is normal in thickness. There is no pericholecystic fluid. The is no acute or chronic inflammation noted. The adrenal glands are unremarkable. There is no enlargement. No lesions are noted. The liver is unremarkable. It shows no focal masses. The appendix is unremarkable. It shows no evidence of inflammation. No appendicolith is seen. The small bowel is unremarkable. There is no evidence of dilatation to suggest obstruction. No evidence of adynamic ileus is seen. There is no small bowel wall thickening to suggest enteritis. Abundant fecal matter is noted throughout the colon consistent with constipation. The urinary bladder is unremarkable. There is no wall thickening to suggest tumor or inflammation. There are no intraluminal calculi. There are no diverticula. There is no evidence of chronic bladder outlet obstruction. There is no evidence of urinary bladder distention to suggest urinary retention. The other pelvic structures are unremarkable. The bony and vascular structures are unremarkable for the patient's age. IMPRESSION: Constipation. Chronic changes as noted above. This study was performed using dose reduction techniques to include automated exposure control and/or adjustment of the mA and/or kV according to patient size.
[2024-07-14 16:41] LABS: APPEARANCE,URINE CLEAR (CLEAR); BILIRUBIN,URINE NEGATIVE (NEGATIVE); COLOR,URINE LIGHT-YELLOW (YELLOW); GLUCOSE, URINE (UA) NEGATIVE (NEGATIVE); KETONES,URINE NEGATIVE (NEGATIVE); LEUKOCYTE ESTERASE ,URINE 75 Leu/uL (NEGATIVE); NITRATE,URINE NEGATIVE (NEGATIVE); OCCULT BLOOD,URINE NEGATIVE (NEGATIVE); PROTEIN,URINE NEGATIVE (NEGATIVE); UROBILINOGEN,URINE 0.2 mg/dL (0.2-1.0)
[2024-07-14 16:45] LABS: ADD UA MICROSCOPIC YES
[2024-07-14 16:46] LABS: RBC,URINE 0-1 /HPF (0-1); SQUAMOUS EPITHELIAL CELL,UR FEW /HPF (0-2)
[2024-07-14 16:49] VITALS: BP 121/56; PULSE 80; RESP 14; TEMP 98.1; O2SAT 97
[2024-07-14] MEDS ORDERED: SULF1TAB42 PO (16:55)
[2024-07-14] MEDS ORDERED: LACT10SO85 PO (16:55)
--- NOTE | 2024-07-14 16:59 | NUR ---
dc pending transportation tbd em[facility] vs private transpo
--- NOTE | 2024-07-14 17:17 | NUR ---
SPOKE WITH MARIO ALONSO RN REQUESTING PROVIDER TO PROVIDER CONTACT DR HYLTON PROVIDED CONTACT TO ADELA ALONSO [facility] FOR COMUNICATION [phone]
--- NOTE | 2024-07-14 17:32 | NUR ---
DR HYLTON CONTACTED G[employer] OPERATOR ADELA ALONSO PT SCOPED LAST WEEK EXPLAINED DC PLANNING TO CALL [facility] TO PROVIDE REPORT TO MARIO ALONSO
--- NOTE | 2024-07-14 17:38 | NUR ---
PER MARIO ALONSO RN PT TO BE PICKED UP BY [facility] NO ETA ON ARRIVAL AT THIS TIME
[2024-07-14] MEDS: sulfaMETHOX-TMP DS 800/160 TAB PO ONE (17:47)
--- NOTE | 2024-07-14 18:02 | NUR ---
PT DC [phone] PENDING TRANSPO
--- NOTE | 2024-07-14 18:43 | NUR ---
TRANSPO ARRIVED AT THIS TIME [facility]LY [facility]
== END 2024-07-14 17:43 ==
LOC: EDH 12:55
DX: K59.00 Constipation, unspecified (principal); N39.0 Urinary tract infection, site not specified; R62.50 Unspecified lack of expected normal physiological development in childhood; E03.9 Hypothyroidism, unspecified; E78.00 Pure hypercholesterolemia, unspecified; I10 Essential (primary) hypertension; Z79.890 Hormone replacement therapy; Z87.440 Personal history of urinary (tract) infections; Z88.0 Allergy status to penicillin; Z88.1 Allergy status to other antibiotic agents; Z93.1 Gastrostomy status
CPT/HCPCS: 36415; 71045; 74176; 80048; 81001; 82550; 83735; 83880; 84484; 85025; 85610; 85730; 87086; 93005; 99285